=== PATIENT | male | born 1955 | race Hispanic/Latino ===

== ENCOUNTER 2025-07-10 22:44 | Emergency (ER) | payer MEDICARE ==
[~2025-07-10] VITALS: Ht 162.6 cm; Wt 104.3 kg
[2025-07-10] MEDS: Morphine 4mg INJECTION 4 MG/ML INJ IV STA (23:06)
[2025-07-10] MEDS: ONDANSETRON HCL INJ 2MG/ML 2ML 2 MG/ML VIAL IV STA (23:09)
[2025-07-10] MEDS: SODIUM CHLORIDE 0.9% 1000ML 1,000 ML IV STA (23:09)
[2025-07-10 23:28] LABS: INR 1.05
[2025-07-10] MEDS ORDERED: IOPAMIDOL 370 MG/ML 100 ML INFUS..BTL INJ ONE (23:30)
[2025-07-10 23:35] LABS: CORONAVIRUS COVID-19 AG NEGATIVE (NEGATIVE)
[2025-07-10 23:54] LABS: EST GLOMERULAR FILTRATION RATE 40.0 ML/MIN (>=60)
[2025-07-11 01:08] VITALS: PULSE 90; RESP 19; TEMP 98.3
[2025-07-11 01:16] VITALS: BP 126/61; PULSE 90; RESP 19; TEMP 98.3; O2SAT 99
[2025-07-11 10:02] LABS: RED CELL DISTRIBUTION WIDTH 15.9 % (11.7-14.4)
[2025-07-11 10:03] LABS: NEUTROPHILS % 75.2 % (38.7-80.0)
[2025-07-11 10:04] LABS: LYMPHOCYTES % 18.0 % (18.0-39.1)
== END 2025-07-11 01:33 | disposition home or self-care (01) ==
LOC: ER 22:47
DX: R04.0 Epistaxis (principal); R10.13 Epigastric pain; R53.81 Other malaise; J84.10 Pulmonary fibrosis, unspecified; Z99.81 Dependence on supplemental oxygen; G20.A1 Parkinson's disease without dyskinesia, without mention of fluctuations; Z85.038 Personal history of other malignant neoplasm of large intestine; R94.31 Abnormal electrocardiogram [ECG] [EKG]; Z11.52 Encounter for screening for COVID-19
CPT/HCPCS: 36415; 74177; 80053; 82550; 83690; 84484; 85025 ×2; 85610; 85730; 87428; 93005; 99284; J2405; J7030; Q9967